=== PATIENT | female | born 1940 | race Caucasian/White ===

== ENCOUNTER → 2018-03-04 | Outpatient (CLI) | payer OTHER ==
[~2018-03-04] MED LIST: ASPI-319 PO; CALCTAB5 PO; FOLI400T41 PO; HYDR12.56 PO; LEVO75TA25 PO; LORA-741 PO; METO-478 PO; MULT-506 PO; PRLSR20 PO; RALO60TA30 PO; VIT B12 PO
--- NOTE | 2018-03-04 15:00 | DIAGNOSTIC IMAGING REPORT ---
CHEST 2 VIEWS ROUTINE CLINICAL HISTORY: Z85.528 renal cell carcinoma COMPARISON STUDY: 08/11/2011 FINDINGS: The bones soft tissues and hemidiaphragms are normal. The cardiomediastinal silhouette is normal. The lungs are clear. The pulmonary vasculature is normal. IMPRESSION: Negative chest. The above report was generated using voice recognition software. It may contain grammatical, syntax or spelling errors. Electronically signed by: Gary Billings M.D. 03/04/2018 2:59 PM Dictated Date/Time: 03/04/2018 2:59 PM
== END | disposition home or self-care (01) ==
LOC: C.RAD 14:32
PROVIDERS: ATTEND Internal Medicine Hematology & Oncology
DX: Z85.528 Personal history of other malignant neoplasm of kidney (principal)